=== PATIENT | male | born 1980 | race Caucasian/White ===

== ENCOUNTER 2020-11-13 18:54 | Emergency (ER) | payer OTHER ==
[~2020-11-13] VITALS: Ht 172.7 cm; Wt 174.6 kg
[~2020-11-13 18:54] MED LIST: ASPI81CH PO; BP MED; CARV6.25 PO; FURO40 PO; Flomax0.4 MG PO; LISI20 PO; Motrin800 MG PO; Norco 5-325 Ta1 EACH PO; PENVK500 PO; Percocet 10-321 EACH PO; Percocet 5-3251 EACH PO; Phenergan/Code480 ML PO; SPIR25 PO; Zofran Odt4 MG SL; Zofran Odt8 MG SL
[2020-11-13] MEDS ORDERED: Veetids 500500 MG PO (20:12)
== END 2020-11-13 20:23 | disposition home or self-care (01) ==
LOC: ER 18:54
DX: K04.7 Periapical abscess without sinus (principal); K02.9 Dental caries, unspecified; F17.200 Nicotine dependence, unspecified, uncomplicated; Z79.899 Other long term (current) drug therapy; Z79.82 Long term (current) use of aspirin
CPT/HCPCS: 96372; 99282-25; A9270; J1885

== ENCOUNTER → 2021-09-03 | Emergency (ER) | payer OTHER ==
[~2021-09-03] VITALS: Ht 172.7 cm; Wt 134.7 kg
[~2021-09-03] MED LIST changes: +Veetids 500500 MG PO
== END ==
LOC: ER 06:58
DX: S39.012A Strain of muscle, fascia and tendon of lower back, initial encounter (principal); I11.0 Hypertensive heart disease with heart failure; I50.9 Heart failure, unspecified; F17.200 Nicotine dependence, unspecified, uncomplicated; X50.0XXA Overexertion from strenuous movement or load, initial encounter; Y92.9 Unspecified place or not applicable; Z79.82 Long term (current) use of aspirin; Z79.899 Other long term (current) drug therapy
CPT/HCPCS: A9270